=== PATIENT | female | born 2000 | race Caucasian/White ===

== ENCOUNTER 2024-08-17 17:12 | Emergency (ER) | payer MEDICAID ==
[~2024-08-17] VITALS: Ht 157.5 cm; Wt 70.0 kg
[2024-08-17 17:20] VITALS: O2SAT 100
[2024-08-17 17:51] LABS: BASOPHILS % 0.3 % (0.0-2.0); EOSINOPHILS % 0.5 % (0.0-5.0); HEMATOCRIT. 35.3 % (36.0-48.0); HEMOGLOBIN. 11.8 g/dL (12.0-16.0); LYMPHOCYTES % 27.7 % (20.0-50.0); MEAN CORPUSCULAR HEMOGLOBIN 26.9 pg (28.0-32.0); MEAN CORPUSCULAR HGB CONC 33.4 g/dL (31.0-37.0); MEAN CORPUSCULAR VOLUME 80.6 fL (81.0-99.0); MEAN PLATELET VOLUME 10.6 fl (7.4-10.4); MONOCYTES % 10.9 % (2.0-8.0); NEUTROPHILS % 60.6 % (40.0-76.0); PLATELET 210 x1000/uL (130-400); RED BLOOD CELL COUNT 4.38 mill/uL (4.2-5.4); RED CELL DISTRIBUTION WIDTH 15.1 % (11.6-14.6); WHITE BLOOD COUNT 6.6 x1000/uL (4.5-11.0)
[2024-08-17 17:55] LABS: CHLORIDE 106 mEq/L (98-107); POTASSIUM 3.4 mEq/L (3.5-5.1); SODIUM 137 mEq/L (136-145)
[2024-08-17 17:56] LABS: CALCIUM 9.4 mg/dL (8.7-10.4); CARBON DIOXIDE 28 mEq/L (21-32)
[2024-08-17 18:01] LABS: CREATININE 0.9 mg/dL (0.6-1.0); GLUCOSE 84 mg/dL (70-105); UREA NITROGEN BLOOD 7 mg/dL (9-23)
[2024-08-17 18:25] LABS: B-HCG QUANTITATIVE 9704 mIU/mL (<3)
[2024-08-17 18:43] LABS: ALANINE AMINOTRANSFERASE 9 IU/L (10-49); ALBUMIN 4.3 g/dL (3.2-4.8); ASPARTATE AMINOTRANSFERASE 15 IU/L (<34); BILIRUBIN DIRECT 0.1 mg/dL (<=3.0); BILIRUBIN TOTAL 0.3 mg/dL (0.1-1.0); PROTEIN TOTAL 7.6 g/dL (6.0-8.3)
[2024-08-17 19:40] VITALS: RESP 18; TEMP 36.89184
[2024-08-17 21:55] LABS: CLARITY URINE CLEAR (CLEAR); COLOR URINE YELLOW (YELLOW); GLUCOSE URINE NEGATIVE (NEGATIVE); KETONES URINE 2+ (NEGATIVE); LEUKOCYTE ESTERASE URINE NEGATIVE (NEGATIVE); NITRITE URINE POSITIVE (NEGATIVE); OCCULT BLOOD URINE 3+ (NEGATIVE); PROTEIN URINE NEGATIVE (NEGATIVE); SPECIFIC GRAVITY URINE 1.017 (1.005-1.030); UROBILINOGEN URINE 0.2 E.U./dL (0.2-1.0)
[2024-08-17 22:11] LABS: BACTERIA URINE 3+; SQUAMOUS EPITHELIAL CELL URINE FEW /lpf (RARE/1+)
[2024-08-17 22:12] LABS: WBC URINE 0-2 /hpf (0-2)
[2024-08-17] MEDS: METHOTREXATE SODIUM/PF 50 MG/2 ML VIAL IM ONE (22:30)
[2024-08-17] MEDS ORDERED: CEPH250C2 MT (23:46)
[2024-08-18 00:20] VITALS: BP 111/69; PULSE 73; O2SAT 99
== END 2024-08-18 00:29 | disposition home or self-care (01) ==
LOC: ER 17:12
DX: O00.90 Unspecified ectopic pregnancy without intrauterine pregnancy (principal); Z3A.01 Less than 8 weeks gestation of pregnancy
CPT/HCPCS: 99285; 76801; 80076; 80048; 81003; 84702; 83690; 85025; 86850; 86900; 86901; 36415; 76817; 96372; J9260